=== PATIENT | female | born 2000 | race Caucasian/White ===

== ENCOUNTER 2022-06-24 19:54 | Emergency (ER) | payer BC ==
[2022-06-24] MEDS: Pantoprazole 40 MG Tab.CR PO ONE (20:08)
[2022-06-24 21:01] LABS: CHLORIDE,CL 105 mmol/L (98-107); SODIUM,NA 138 mmol/L (136-145)
[2022-06-24 21:09] LABS: ANION GAP 13.7 mmol/L (5-15); ESTIMATED GFR 107 mL/min (>=60)
[2022-06-24 21:19] LABS: ACETAMINOPHEN 0 ug/ml (10-30)
[2022-06-24 21:19] LABS: BARBITURATE SCREEN,URINE NEGATIVE (NEGATIVE); BENZODIAZEPINES SCREEN,URINE NEGATIVE (NEGATIVE); BUPRENORPHINE SCREEN,URINE NEGATIVE (NEGATIVE); METHAMPHETAMINE SCREEN, URINE NEGATIVE (NEGATIVE); THC SCREEN,URINE 50 NG/ML NEGATIVE (NEGATIVE)
== END 2022-06-24 22:22 | disposition home or self-care (01) ==
LOC: VM.ED 19:54
DX: T39.312A Poisoning by propionic acid derivatives, intentional self-harm, initial encounter (principal)
CPT/HCPCS: 36415; 80053; 80143; 80179; 80305; 80307; 81003; 82550; 85025; 86140; 99284; 99285; A9270

== ENCOUNTER 2022-08-02 18:29 | Emergency (ER) | payer BC ==
[2022-08-02] MEDS ORDERED: EPINEPHrine 1 MG/1 ML Amp IM ONE (18:35)
[2022-08-02] MEDS ORDERED: methylPREDNISolone Sodium Succinate 125 MG/2 ML SDV IM ONE (18:36)
[2022-08-02] MEDS ORDERED: Albuterol/Ipratropium 3.0-0.5 MG/3 ML Neb Soln NEB ONE (19:03)
[2022-08-02] MEDS ORDERED: Famotidine 20 MG Tab PO ONE (19:29)
== END 2022-08-02 20:06 | disposition home or self-care (01) ==
LOC: VM.ED 18:29
DX: T78.1XXA Other adverse food reactions, not elsewhere classified, initial encounter (principal); Z91.09 Other allergy status, other than to drugs and biological substances; Z91.010 Allergy to peanuts
CPT/HCPCS: 94640; 96372; 99283; A9270-GY; J0171; J2930; J7620-GY